=== PATIENT | male | born 1985 | race Two or more races ===

== ENCOUNTER 2016-05-28 03:35 | Emergency (ER) | payer OTHER ==
[~2016-05-28] VITALS: Ht 170.2 cm; Wt 61.2 kg
[2016-05-28 03:50] VITALS: BP 109/67
== END 2016-05-28 04:06 | disposition home or self-care (01) ==
LOC: ER 03:39
DX: L02.91 Cutaneous abscess, unspecified (principal)
CPT/HCPCS: A4606; Z7610